=== PATIENT | female | born 1945 | race Caucasian/White ===

== ENCOUNTER 2021-01-20 08:51 | Observation (INO) ==
[2021-01-20 09:48] LABS: Basophils % 0.2 %; Eosinophils % 0.1 %; Hematocrit 30.5 % (35.3-44.9); Hemoglobin 10.2 g/dL (11.5-15.4); Immature Granulocytes % 0.5 % (0-4); Lymphocytes # 0.8 K/mcL (0.6-4.6); Lymphocytes % 8.7 %; Mean Corpuscular HGB Conc 33.4 g/dL (31.6-35.5); Mean Corpuscular Hemoglobin 28.4 pg (28.0-33.3); Mean Platelet Volume 10.8 fL (9.4-12.4); Monocytes # 0.7 K/mcL (0.0-1.3); Monocytes % 8.4 %; Neutrophils # 7.1 K/mcL (1.6-8.9); Platelet Count 174 K/mcL (140-400); Red Blood Count 3.59 M/mcL (3.82-4.97); Red Cell Distribution Width 14.5 % (11.5-14.5); Segmented Neutrophils % 82.1 %; White Blood Count 8.7 K/mcL (4.3-11.1)
[2021-01-20] MEDS ORDERED: 0.9 % Sodium Chloride 1,000 ML IVC ONE (09:59)
[2021-01-20 10:11] LABS: BUN/Creatinine Ratio 22 (6-26); Blood Urea Nitrogen 22 mg/dL (8-23); Calcium 9.1 mg/dL (8.6-10.3); Carbon Dioxide 22 mEq/L (23-29); Chloride 105 mEq/L (98-107); Glucose 137 mg/dL (70-105); Osmolality,Calculated 285 (280-300); Potassium 3.5 mEq/L (3.5-5.1); Sodium 135 mEq/L (136-145); Troponin I 0.25 ng/mL (< 0.04); eGFR For African Americans > 60 (> 60); eGFR For Non-African Americans 53 (> 60)
[2021-01-20 10:34] LABS: Adenovirus Not Detected (Not Detect); Bordetella Pertussis Not Detected (Not Detect); Chlamydophila pneumoniae Not Detected (Not Detect); Coronavirus 229E Not Detected (Not Detect); Coronavirus HKU1 Not Detected (Not Detect); Coronavirus NL63 Not Detected (Not Detect); Coronavirus OC43 Not Detected (Not Detect); Human Metapneumovirus Not Detected (Not Detect); Human Rhinovirus/Enterovirus Not Detected (Not Detect); Influenza A Subtype 2009 H1 Not Detected (Not Detect); Influenza B Not Detected (Not Detect); Mycoplasma pneumoniae Not Detected (Not Detect); Parainfluenza Virus 1 Not Detected (Not Detect); Parainfluenza Virus 2 Not Detected (Not Detect); Parainfluenza Virus 3 Not Detected (Not Detect); Parainfluenza Virus 4 Not Detected (Not Detect); Respiratory Syncytial Virus Not Detected (Not Detect); SARS-CoV-2 Not Detected (Not Detect)
[2021-01-20] MEDS ORDERED: Aspirin 325 MG TABLET PO ONE (10:37)
[2021-01-20] MEDS ORDERED: *HR* Heparin 5,000 UNIT/ML VIAL IVP PRN ×2 (10:38)
[2021-01-20] MEDS ORDERED: *HR* Heparin 5,000 UNIT/ML VIAL IVP ONE (10:38)
[2021-01-20 10:42] LABS: Bacteria,Urine Few per hpf (None-Few); Bilirubin,Urine Negative (Negative); Blood,Urine Trace (Negative); Clarity,Urine Turbid (Clear); Color,Urine Yellow (Yellow); Glucose,Urine (UA) Normal (Normal); Ketones,Urine Negative (Negative); Leukocyte Esterase,Urine Large (Negative); Mucus,Urine Few per lpf (None-Few); Nitrite,Urine Positive (Negative); PH,Urine 6.5 pH Units (5.0-8.0); Protein,Urine 70 mg/dL (Neg-Trace); RBC,Urine 0-3 per hpf (0-3); Specific Gravity,Urine 1.017 (1.010-1.025); Squamous Epithelial Cell,Urine Few per hpf (None-Few); Urobilinogen,Urine Normal (Normal); WBC,Urine TNTC per hpf (0-3)
[2021-01-20] MEDS: Heparin 25,000UNIT/250ML 1/2NS 25,000 UNIT/250 ML IV.SOLN IVC SCH (11:09)
[2021-01-20 11:13] LABS: Hematocrit 29.9 % (35.3-44.9); Hemoglobin 9.7 g/dL (11.5-15.4); Mean Corpuscular HGB Conc 32.4 g/dL (31.6-35.5); Mean Corpuscular Hemoglobin 27.9 pg (28.0-33.3); Mean Corpuscular Volume 85.9 fL (83.0-100.0); Mean Platelet Volume 10.7 fL (9.4-12.4); Platelet Count 160 K/mcL (140-400); Red Blood Count 3.48 M/mcL (3.82-4.97); Red Cell Distribution Width 14.4 % (11.5-14.5)
[2021-01-20] MEDS ORDERED: cefTRIAXone 1,000 MG in Water for inj. (sterile) 10 ML IVP ONE (11:19)
[2021-01-20 11:24] LABS: Heparin anti-factor XA UFH < 0.04 IU/mL (0.30-0.70); INR 1.3; Prothrombin Time 14.9 Seconds (9.4-12.1)
[2021-01-20] MEDS ORDERED: Melatonin 3 MG TABLET PO PRN (11:29)
[2021-01-20] MEDS ORDERED: Mag Hydrox/Al Hydrox/Simeth 30 ML UDC PO PRN (11:29)
[2021-01-20] MEDS ORDERED: Naloxone 0.4 MG/ML INJ IVP PRN (11:29)
[2021-01-20] MEDS ORDERED: Acetaminophen 325 MG TABLET PO PRN (11:29)
[2021-01-20] MEDS ORDERED: Ondansetron ODT 4 MG TAB.RAPDIS SL PRN (11:29)
[2021-01-20] MEDS ORDERED: 0.9 % Sodium Chloride 1,000 ML IVC SCH (11:30)
[2021-01-20] MEDS ORDERED: Dextrose Gel 15 GM/37.5 ML TUBE PO PRN ×2 (11:31)
[2021-01-20] MEDS ORDERED: Perflutren Lipid Microsphere 1.3 ML in 0.9 % Sodium Chloride 8.7 ML IVP PRN (11:31)
[2021-01-20] MEDS ORDERED: *HR* Dextrose 50 % in Water (Vial) 50 ML VIAL IVP PRN (11:31)
[2021-01-20] MEDS ORDERED: D5% in Water 1,000 ML IVC PRN (11:31)
[2021-01-20] MEDS ORDERED: Isovue-370 500 ML BOTTLE IVP ONE (13:13)
[2021-01-20] MEDS ORDERED: Ipratropium/Albuterol Neb 3 ML IH PRN (13:23)
[2021-01-20] MEDS ORDERED: Azithromycin 250 MG TABLET PO ONE (13:29)
[2021-01-20] MEDS: Insulin LISPRO 300 UNITS/3 ML VIAL SUBQ SCH ×2 (16:48→21:05)
[2021-01-20] MEDS: atenoloL 25 MG TABLET PO SCH (19:42)
[2021-01-21 02:10] LABS: Basophils % 0.3 %; Eosinophils % 0.3 %; Hematocrit 26.2 % (35.3-44.9); Hemoglobin 8.7 g/dL (11.5-15.4); Immature Granulocytes % 0.4 % (0-4); Lymphocytes % 15.5 %; Mean Corpuscular HGB Conc 33.2 g/dL (31.6-35.5); Mean Corpuscular Hemoglobin 28.4 pg (28.0-33.3); Mean Corpuscular Volume 85.6 fL (83.0-100.0); Mean Platelet Volume 11.2 fL (9.4-12.4); Monocytes # 0.6 K/mcL (0.0-1.3); Monocytes % 8.4 %; Platelet Count 162 K/mcL (140-400); Red Blood Count 3.06 M/mcL (3.82-4.97); Red Cell Distribution Width 14.4 % (11.5-14.5); Segmented Neutrophils % 75.1 %; White Blood Count 6.7 K/mcL (4.3-11.1)
[2021-01-21 02:31] LABS: BUN/Creatinine Ratio 20 (6-26); Blood Urea Nitrogen 15 mg/dL (8-23); Carbon Dioxide 22 mEq/L (23-29); Chloride 106 mEq/L (98-107); Glucose 108 mg/dL (70-105); Osmolality,Calculated 281 (280-300); Potassium 3.2 mEq/L (3.5-5.1); Sodium 135 mEq/L (136-145); eGFR For African Americans > 60 (> 60); eGFR For Non-African Americans > 60 (> 60)
[2021-01-21] MEDS: Insulin LISPRO 300 UNITS/3 ML VIAL SUBQ SCH ×4 (07:29→20:49)
[2021-01-21] MEDS: Azithromycin 250 MG TABLET PO SCH (08:32)
[2021-01-21] MEDS ORDERED: Potassium Chloride 20 MEQ, Lidocaine 1% 2 ML in 0.9 % Sodium Chloride 250 ML IVPB ONE (08:52)
[2021-01-21 10:40] LABS: Magnesium 1.9 mg/dL (1.6-2.6); Phosphorous 2.5 mg/dL (2.7-4.5)
[2021-01-21] MEDS: atenoloL 25 MG TABLET PO SCH ×2 (11:41→20:49)
[2021-01-21] MEDS: Heparin 25,000UNIT/250ML 1/2NS 25,000 UNIT/250 ML IV.SOLN IVC SCH (11:42)
[2021-01-21] MEDS ORDERED: 0.9 % Sodium Chloride 1,000 ML IVC SCH (13:15)
[2021-01-21] MEDS: cefTRIAXone 1,000 MG in Water for inj. (sterile) 10 ML IVP SCH (13:33)
[2021-01-21] MEDS: polyethylene glycoL 3350 17 GM POWD.PACK PO SCH (13:47)
[2021-01-21] MEDS: Aspirin 81 MG TAB.CHEW PO SCH (13:47)
[2021-01-21] MEDS: Sennosides/Docusate Sodium TABLET PO SCH (20:49)
[2021-01-22] MEDS: Insulin LISPRO 300 UNITS/3 ML VIAL SUBQ SCH ×4 (07:56→19:53)
[2021-01-22 08:11] LABS: Basophils % 0.7 %; Eosinophils # 0.2 K/mcL (0.0-0.6); Eosinophils % 2.7 %; Hematocrit 27.9 % (35.3-44.9); Immature Granulocytes % 0.5 % (0-4); Lymphocytes % 17.3 %; Mean Corpuscular HGB Conc 32.3 g/dL (31.6-35.5); Mean Corpuscular Volume 86.6 fL (83.0-100.0); Mean Platelet Volume 10.8 fL (9.4-12.4); Monocytes # 0.4 K/mcL (0.0-1.3); Monocytes % 7.6 %; Platelet Count 181 K/mcL (140-400); Red Blood Count 3.22 M/mcL (3.82-4.97); Red Cell Distribution Width 14.3 % (11.5-14.5); Segmented Neutrophils % 71.2 %; White Blood Count 5.7 K/mcL (4.3-11.1)
[2021-01-22] MEDS: Aspirin 81 MG TAB.CHEW PO SCH (08:16)
[2021-01-22] MEDS: Azithromycin 250 MG TABLET PO SCH (08:16)
[2021-01-22] MEDS: polyethylene glycoL 3350 17 GM POWD.PACK PO SCH (08:16)
[2021-01-22] MEDS: Sennosides/Docusate Sodium TABLET PO SCH ×2 (08:16→19:53)
[2021-01-22] MEDS: atenoloL 25 MG TABLET PO SCH ×2 (08:17→19:53)
[2021-01-22 08:28] LABS: BUN/Creatinine Ratio 15 (6-26); Blood Urea Nitrogen 10 mg/dL (8-23); Calcium 8.5 mg/dL (8.6-10.3); Carbon Dioxide 20 mEq/L (23-29); Chloride 113 mEq/L (98-107); Glucose 106 mg/dL (70-105); Magnesium 1.8 mg/dL (1.6-2.6); Osmolality,Calculated 287 (280-300); Phosphorous 2.7 mg/dL (2.7-4.5); Potassium 3.9 mEq/L (3.5-5.1); Sodium 139 mEq/L (136-145); eGFR For African Americans > 60 (> 60); eGFR For Non-African Americans > 60 (> 60)
[2021-01-22] MEDS: cefTRIAXone 1,000 MG in Water for inj. (sterile) 10 ML IVP SCH (13:36)
[2021-01-23 07:13] VITALS: BP 143/72
[2021-01-23] MEDS: Aspirin 81 MG TAB.CHEW PO SCH (07:44)
[2021-01-23] MEDS: Sennosides/Docusate Sodium TABLET PO SCH (07:44)
[2021-01-23] MEDS: Azithromycin 250 MG TABLET PO SCH (07:44)
[2021-01-23] MEDS: polyethylene glycoL 3350 17 GM POWD.PACK PO SCH (07:45)
[2021-01-23] MEDS: atenoloL 25 MG TABLET PO SCH (07:45)
[2021-01-23] MEDS: Insulin LISPRO 300 UNITS/3 ML VIAL SUBQ SCH ×2 (07:51→11:08)
[2021-01-23 08:55] LABS: Basophils % 0.5 %; Eosinophils # 0.3 K/mcL (0.0-0.6); Eosinophils % 4.9 %; Hematocrit 31.2 % (35.3-44.9); Hemoglobin 10.4 g/dL (11.5-15.4); Immature Granulocytes % 0.4 % (0-4); Lymphocytes # 1.1 K/mcL (0.6-4.6); Lymphocytes % 19.2 %; Mean Corpuscular HGB Conc 33.3 g/dL (31.6-35.5); Mean Corpuscular Hemoglobin 28.9 pg (28.0-33.3); Mean Corpuscular Volume 86.7 fL (83.0-100.0); Mean Platelet Volume 10.8 fL (9.4-12.4); Monocytes # 0.4 K/mcL (0.0-1.3); Monocytes % 7.1 %; Neutrophils # 3.8 K/mcL (1.6-8.9); Platelet Count 260 K/mcL (140-400); Red Cell Distribution Width 14.3 % (11.5-14.5); Segmented Neutrophils % 67.9 %; White Blood Count 5.5 K/mcL (4.3-11.1)
[2021-01-23 09:17] LABS: BUN/Creatinine Ratio 16 (6-26); Blood Urea Nitrogen 12 mg/dL (8-23); Calcium 9.1 mg/dL (8.6-10.3); Carbon Dioxide 22 mEq/L (23-29); Chloride 110 mEq/L (98-107); Glucose 102 mg/dL (70-105); Osmolality,Calculated 290 (280-300); Potassium 3.9 mEq/L (3.5-5.1); Sodium 140 mEq/L (136-145); eGFR For African Americans > 60 (> 60); eGFR For Non-African Americans > 60 (> 60)
[2021-01-23] MEDS ORDERED: Water for inj. (sterile) 20 ML IV ONE (11:03)
[2021-01-23] MEDS: cefTRIAXone 1,000 MG in Water for inj. (sterile) 10 ML IVP SCH ×2 (11:08→11:17)
== END 2021-01-23 12:05 | disposition home or self-care (01) ==
LOC: SUATTDRO → EMEROOARM 08:51 → 3BNU 08:51 → SUATTDRO 12:08 → 3BNU 12:26 → SUATTDRO 18:33
PROVIDERS: ADMIT Family Medicine; ATTEND Nurse Practitioner

== ENCOUNTER 2022-03-18 18:47 | Observation (INO) ==
[2022-03-18 19:34] LABS: Basophils % 0.4 %; Eosinophils # 0.2 K/mcL (0.0-0.6); Eosinophils % 2.3 %; Hematocrit 27.8 % (35.3-44.9); Hemoglobin 9.6 g/dL (11.5-15.4); Immature Granulocytes % 0.3 % (0-4); Lymphocytes # 2.1 K/mcL (0.6-4.6); Lymphocytes % 21.1 %; Mean Corpuscular HGB Conc 34.5 g/dL (31.6-35.5); Mean Corpuscular Hemoglobin 29.3 pg (28.0-33.3); Mean Corpuscular Volume 84.8 fL (83.0-100.0); Mean Platelet Volume 11.5 fL (9.4-12.4); Monocytes # 0.7 K/mcL (0.0-1.3); Monocytes % 6.9 %; Neutrophils # 6.8 K/mcL (1.6-8.9); Platelet Count 211 K/mcL (140-400); Red Blood Count 3.28 M/mcL (3.82-4.97); Red Cell Distribution Width 15.1 % (11.5-14.5); White Blood Count 9.8 K/mcL (4.3-11.1)
[2022-03-18 19:56] LABS: Calcium 9.2 mg/dL (8.6-10.3); Potassium 2.7 mEq/L (3.5-5.1); Troponin I 0.03 ng/mL (< 0.04)
[2022-03-18] MEDS ORDERED: 0.9 % Sodium Chloride 1,000 ML IVC ONE (21:09)
[2022-03-19 01:24] LABS: Calcium 8.1 mg/dL (8.6-10.3); Potassium 2.9 mEq/L (3.5-5.1)
[2022-03-19] MEDS ORDERED: Naloxone 0.4 MG/ML INJ IVP PRN (02:16)
[2022-03-19] MEDS ORDERED: Ondansetron 4 MG/2 ML VIAL IVP PRN (02:16)
[2022-03-19] MEDS ORDERED: Melatonin 3 MG TABLET PO PRN (02:16)
[2022-03-19] MEDS ORDERED: Dextrose Gel 15 GM/37.5 ML TUBE PO PRN ×2 (03:03)
[2022-03-19] MEDS ORDERED: D5% in Water 1,000 ML IVC PRN (03:03)
[2022-03-19] MEDS ORDERED: *HR* Dextrose 50 % in Water (Syg) 50 ML SYRINGE IVP PRN (03:03)
[2022-03-19] MEDS ORDERED: polyethylene glycoL 3350 17 GM POWD.PACK PO PRN (03:09)
[2022-03-19] MEDS: 0.9 % Sodium Chloride 1,000 ML IVC SCH ×2 (03:34→09:09)
[2022-03-19 05:32] LABS: Influenza A PCR Negative (Negative); Influenza B PCR Negative (Negative); Resp. Syncytial Virus PCR Negative (Negative)
[2022-03-19 05:34] LABS: SARS-CoV-2 by PCR (In House) Negative (Negative)
[2022-03-19 06:58] LABS: Hematocrit 23.9 % (35.3-44.9); Mean Corpuscular HGB Conc 33.1 g/dL (31.6-35.5); Mean Corpuscular Volume 87.9 fL (83.0-100.0); Mean Platelet Volume 11.9 fL (9.4-12.4); Platelet Count 129 K/mcL (140-400); Red Blood Count 2.72 M/mcL (3.82-4.97); Red Cell Distribution Width 15.4 % (11.5-14.5); White Blood Count 6.3 K/mcL (4.3-11.1)
[2022-03-19 07:01] LABS: Hemoglobin 7.9 g/dL (11.5-15.4)
[2022-03-19 07:18] LABS: Calcium 8.3 mg/dL (8.6-10.3); Magnesium 1.8 mg/dL (1.6-2.6); Phosphorous 3.3 mg/dL (2.7-4.5); Potassium 3.1 mEq/L (3.5-5.1)
[2022-03-19] MEDS: Insulin LISPRO 300 UNITS/3 ML VIAL SUBQ SCH ×4 (08:56→21:05)
[2022-03-19] MEDS: polyethylene glycoL 3350 17 GM POWD.PACK PO SCH ×2 (09:08→21:07)
[2022-03-19] MEDS: *HR* Heparin 5,000 UNIT/ML VIAL SQ SCH ×2 (14:01→21:07)
[2022-03-19] MEDS: Ringers Solution, Lactated 1,000 ML IVC SCH ×2 (14:16→21:08)
[2022-03-19 17:37] LABS: Creatinine,Urine 27 mg/dL; Potassium,Urine < 2.0 mEq/L; Sodium, Urine < 10.0 mEq/L
[2022-03-19 19:12] LABS: Bilirubin,Urine Negative (Negative); Blood,Urine Negative (Negative); Clarity,Urine Clear (Clear); Color,Urine Colorless (Yellow); Glucose,Urine (UA) Normal (Normal); Ketones,Urine Negative (Negative); Leukocyte Esterase,Urine Trace (Negative); Nitrite,Urine Negative (Negative); Protein,Urine Trace mg/dL (Neg-Trace); RBC,Urine 0-3 per hpf (0-3); Squamous Epithelial Cell,Urine Few per hpf (None-Few); Urobilinogen,Urine Normal (Normal)
[2022-03-20 03:20] LABS: Hematocrit 22.1 % (35.3-44.9); Hemoglobin 7.5 g/dL (11.5-15.4); Mean Corpuscular HGB Conc 33.9 g/dL (31.6-35.5); Mean Corpuscular Hemoglobin 29.4 pg (28.0-33.3); Mean Corpuscular Volume 86.7 fL (83.0-100.0); Mean Platelet Volume 11.8 fL (9.4-12.4); Platelet Count 133 K/mcL (140-400); Red Blood Count 2.55 M/mcL (3.82-4.97); Red Cell Distribution Width 15.6 % (11.5-14.5); White Blood Count 4.7 K/mcL (4.3-11.1)
[2022-03-20 03:38] LABS: Calcium 8.4 mg/dL (8.6-10.3); Potassium 3.4 mEq/L (3.5-5.1)
[2022-03-20] MEDS: Ringers Solution, Lactated 1,000 ML IVC SCH ×2 (05:09→16:01)
[2022-03-20] MEDS: *HR* Heparin 5,000 UNIT/ML VIAL SQ SCH ×2 (05:10→15:12)
[2022-03-20] MEDS: Insulin LISPRO 300 UNITS/3 ML VIAL SUBQ SCH ×4 (07:11→19:35)
[2022-03-20] MEDS: polyethylene glycoL 3350 17 GM POWD.PACK PO SCH ×2 (07:22→19:41)
[2022-03-20] MEDS: Cyanocobalamin (B-12) 1,000 MCG/ML VIAL SQ SCH (09:59)
[2022-03-20 11:10] LABS: Albumin 3.1 g/dL (3.5-5.7); Albumin/Globulin Ratio 1.1 (1.1-2.2); Bilirubin,Direct 0.1 mg/dL (0.0-0.2); Bilirubin,Indirect 0.2 mg/dL (0.0-1.0); Bilirubin,Total 0.3 mg/dL (0.3-1.0); Globulin 2.7 g/dL (2.4-3.5); Total Protein 5.8 g/dL (6.4-8.9)
[2022-03-20] MEDS: Iron Sucrose Complex 250 MG in 0.9 % Sodium Chloride 250 ML IVPB SCH (11:30)
[2022-03-21] MEDS: Ringers Solution, Lactated 1,000 ML IVC SCH (00:15)
[2022-03-21 06:22] LABS: Calcium 8.3 mg/dL (8.6-10.3); Potassium 3.8 mEq/L (3.5-5.1)
[2022-03-21 06:24] LABS: Hematocrit 24.1 % (35.3-44.9); Mean Corpuscular HGB Conc 33.2 g/dL (31.6-35.5); Mean Corpuscular Hemoglobin 29.3 pg (28.0-33.3); Mean Corpuscular Volume 88.3 fL (83.0-100.0); Mean Platelet Volume 11.6 fL (9.4-12.4); Platelet Count 144 K/mcL (140-400); Red Blood Count 2.73 M/mcL (3.82-4.97); Red Cell Distribution Width 15.6 % (11.5-14.5); White Blood Count 5.4 K/mcL (4.3-11.1)
[2022-03-21 06:41] LABS: Magnesium 1.8 mg/dL (1.6-2.6)
[2022-03-21 06:45] LABS: Folate 14.7 ng/mL (3.0-16.0)
[2022-03-21 06:50] LABS: Vitamin B12 > 1500 pg/mL (250-1100)
[2022-03-21 07:07] LABS: Estimated Average Glucose 123 mg/dl; Hemoglobin A1C 5.9 %
[2022-03-21 07:56] VITALS: BP 149/63; PULSE 60; TEMP 97.6; O2SAT 99
[2022-03-21] MEDS: Insulin LISPRO 300 UNITS/3 ML VIAL SUBQ SCH ×2 (08:16→11:51)
[2022-03-21] MEDS ORDERED: atenoloL 25 MG TABLET PO SCH (09:00)
[2022-03-21] MEDS: Cyanocobalamin (B-12) 1,000 MCG/ML VIAL SQ SCH (09:44)
[2022-03-21] MEDS: Iron Sucrose Complex 250 MG in 0.9 % Sodium Chloride 250 ML IVPB SCH (09:44)
[2022-03-21] MEDS: polyethylene glycoL 3350 17 GM POWD.PACK PO SCH (09:49)
== END 2022-03-21 12:08 | disposition home health service (06) ==
LOC: EMEROOARM 18:47 → 2ANU 18:47 → SUATTDRO 03-19 02:03 → 2ANU 03-19 03:06
PROVIDERS: ADMIT Internal Medicine; ATTEND Pharmacist